=== PATIENT | male | born 1980 | race Hispanic/Latino ===

== ENCOUNTER 2018-06-25 14:06 | Emergency (ER) | payer MEDICARE ==
--- NOTE | 2018-06-25 14:12 | Emergency Department Report ---
Blank Doc - Documentation Documentation: This is a 38-year-old male that presents with URI symptoms. This initial assessment diagnostic orders/clinical plan/treatment(s) is/are subject to change based on patient's health status, clinical progression and re- assessment by fellow clinical providers in the ED. Further treatment and workup at subsequent clinical providers discretion. Patient/guardians urged not to elope from ED s their condition may be serious if not clinically assessed and managed. Initial orders include: 1-Patient sent to [facility] for further evaluation and treatment 2- CXR
[2018-06-25 14:17] VITALS: BP 155/100
--- NOTE | 2018-06-25 15:51 | XRay Report ---
FINAL REPORT EXAM: XR CHEST ROUTINE 2V HISTORY: cough TECHNIQUE: PA and lateral views of the chest PRIORS: None. FINDINGS: Lines, tubes, and devices: N/A Lungs and pleura: Trachea is normal in position. Lungs are clear of infiltrate, pleural effusion, va scular congestion, or pneumothorax. Cardiomediastinal silhouette: Cardiac and mediastinal silhouettes are unremarkable. Other: Bony structures are intact. IMPRESSION: No acute cardiopulmonary process seen.
[2018-06-25] MEDS ORDERED: DECADRON IM STA (18:55)
--- NOTE | 2018-06-25 18:55 | Emergency Department Report ---
Minor Respiratory - HPI Chief Complaint: Upper Respiratory Infection Stated Complaint: POSS RESPIRATORY INFECTION Time Seen by Provider: 06/25/18 14:11 Duration: 2 Days Pain Location: Other (headache headache 2 days) Severity: mild (2/10) Minor Respiratory: Yes Rhinorrhea (nasal congestion that started over a week ago), Yes Able to Tolerate Fluids, Yes Cough (congested cough and chest), No Sore Throat, No Ear Pain, No Sick Contacts, No Hemoptysis, No Chest Pain, No Shortness of Breath, No Fever (report chills) Other History: This is a 38-year-old male here report that he started having headache and feels congested in his chest with coughing and 2 days but he said prior to that he had nasal congestion and runny nose for over a week now. His headache is 2/10 feels like pressure located to his forehead. [id number] cough and cold medication is not helping. He did not take anything for pain. Patient have multiple comorbidities to include congestive heart failure, hypertension, renal disease and he is on dialysis. Blood pressure is 155/100. He said he to take blood pressure medication but he had not taken them today. ED Review of Systems ROS: Stated complaint: POSS RESPIRATORY INFECTION Other details as noted in HPI Constitutional: chills. denies: fever ENT: congestion. denies: throat pain Respiratory: cough, wheezing. denies: shortness of breath, SOB with exertion, SOB at rest, stridor Cardiovascular: denies: chest pain, palpitations, dyspnea on exertion, edema, syncope Gastrointestinal: denies: abdominal pain, nausea, vomiting Musculoskeletal: denies: back pain, joint swelling, arthralgia, myalgia Neurological: headache. denies: numbness, paresthesias, abnormal gait, vertigo ED Past Medical Hx - Past Medical History Previous Medical History?: Yes Hx Hypertension: Yes (Took Lopressor @ 0530) Hx Congestive Heart Failure: Yes (11/2013) Hx Renal Disease: Yes (TUES; TH; SAT) Hx Seizures: No Hx HIV: No - Surgical History Past Surgical History?: Yes Hx Pacemaker: No Hx Internal Defibrillator: No Additional Surgical History: PERMA CATH RIGHT CHEST. RIGHT EYE SURGERY - Family History Family history: hypertension - Social History Smoking Status: Unknown if ever smoked Substance Use Type: None - Medications Home Medications: Home Medications Medication Instructions Recorded Confirmed Last Taken Type Aspirin EC [Aspirin Enteric Coated 81 mg PO QDAY #30 tablet 05/09/14 06/02/14 06/02/14 05:30 Rx TAB] Famotidine [Pepcid] 20 mg PO DAILY #30 tablet 05/09/14 06/02/14 06/01/14 Rx Folic Acid [Folvite] 1 mg PO QDAY #30 tablet 05/09/14 06/02/14 05/26/14 Rx HYDROcodone/APAP 5-325 [[place] 1 each PO Q6H PRN #30 tablet 05/09/14 06/02/14 05/26/14 Rx 5-325 mg TAB] ISOSORBIDE MONOnitrate [Imdur ER] 30 mg PO QDAY #30 tablet 05/09/14 06/02/14 06/02/14 05:30 Rx Metoprolol [Lopressor TAB] 50 mg PO Q8HR #90 tablet 05/09/14 06/02/14 06/02/14 05:30 Rx Sodium Bicarbonate 650 mg PO TID #90 tablet 05/09/14 06/02/14 05/19/14 Rx Thiamine [Vitamin B-1] 100 mg PO QDAY #30 tablet 05/09/14 06/02/14 05/19/14 Rx Zolpidem [Ambien] 5 mg PO QHS PRN #30 tablet 05/09/14 06/02/14 05/30/14 Rx amLODIPine [Norvasc] 10 mg PO DAILY #30 tablet 05/09/14 06/02/14 06/02/14 05:30 Rx hydrALAZINE [Apresoline TAB] 100 mg PO Q8H #90 tablet 05/09/14 06/02/14 06/02/14 05:30 Rx HYDROcodone/ACETAMINOPHEN [[place] 1 each PO Q6HR PRN #40 tablet 06/02/14 Unknown Rx 7.5-325 mg TAB] levoFLOXacin [Levaquin] 250 mg PO QDAY #7 tablet 06/11/14 Unknown Rx oxyCODONE /ACETAMINOPHEN [Percocet 1 tab PO Q6HR PRN #14 tablet 06/11/14 Unknown Rx 5/325 mg] predniSONE [Deltasone] 20 mg PO BID #8 tablet 06/11/14 Unknown Rx ALBUTEROL Inhaler(NF) [VENTOLIN 2 puff IH Q6H PRN 1 Days #1 inha 06/25/18 Unknown Rx Inhaler(NF)] Cetirizine HCl [ZyrTEC] 10 mg PO QAM 14 Days #14 capsule 06/25/18 Unknown Rx Doxycycline [Vibramycin CAP] 100 mg PO Q12HR 10 Days #20 capsule 06/25/18 Unknown Rx Fluticasone [Flonase] 1 spray NS QDAY 14 Days #1 bottle 06/25/18 Unknown Rx guaiFENesin/CODEINE [Robitussin AC] 10 ml PO QHS PRN #70 oral.liqd 06/25/18 Unknown Rx predniSONE [Deltasone] 50 mg PO QDAY 3 Days #3 tab 06/25/18 Unknown Rx Minor Respiratory Exam - Exam General: Vital signs noted. No distress. Alert and acting appropriately. This is a 38-year-old male well-nourished well-developed in no acute distress patient is on dialysis 3 times a week. HEENT: Yes Moist Mucous Membranes (uvula midline and oral airways patent), Yes Rhinorrhea (congested with erythema), No Pharyngeal Erythema, No Pharyngeal Exudates, No Conjuctival Injection, No Frontal Tenderness, No Maxillary Tenderness Ear: Neither TM Bulge (bilateral TM congested without erythema), Neither TM Erythema, Neither EAC Pain, Neither EAC Discharge Neck: Yes Supple (full range of motion), No Adenopathy Lungs: Yes Good Air Exchange, Yes Wheezes (scattered wheezes into upper lung chávez), Yes Ronchi (rhonchi cleared with cough and), Yes Cough (congested cough), No Stridor, No Labored Respirations, No Retractions, No Use of Accessory Muscles, No Other Abnormal Lung Sounds Heart: Yes Regular (rate and rhythm) Abdomen: Yes Normal Bowel Sounds, No Tenderness Skin: No Rash, No Edema Neurologic: Alert and oriented 3, no deficits. Musculoskeletal: Unremarkable. No cce. + 2 pulses in all extremities, no neurovascular compromise ED Course Vital Signs 06/25/18 14:16 Temperature 97.7 F Pulse Rate 78 Respiratory 18 Rate Blood Pressure 155/100 O2 Sat by Pulse 97 Oximetry - Reevaluation(s) Reevaluation #1: 06/25/18 19:55 Patient stable throughout ED course he receives DuoNeb 1 and emergency room. Lung sounds are clear. He also received Decadron 10 mg IM. ED Medical Decision Making - Radiology Data Radiology results: report reviewed Chest x-ray dictated by radiologist report reviewed by myself. Please see report below Findings [facility] [address] [place] [address] XRay Report Signed Patient: VALERIA LANIER MR#: [id number] : 1980 Acct:[id number] Age/Sex: 38 / M ADM Date: 06/25/18 Loc: ED Attending Dr: Ordering Physician: FARNAZ NEWTON NP Date of Service: 06/25/18 Procedure(s): XR chest routine 2V Accession Number(s): [id number] cc: FARNAZ NEWTON NP Fluoro Time In Minutes: FINAL REPORT EXAM: XR CHEST ROUTINE 2V HISTORY: cough TECHNIQUE: PA and lateral views of the chest PRIORS: None. FINDINGS: Lines, tubes, and devices: N/A Lungs and pleura: Trachea is normal in position. Lungs are clear of infiltrate, pleural effusion, vascular congestion, or pneumothorax. Cardiomediastinal silhouette: Cardiac and mediastinal silhouettes are unremarkable. Other: Bony structures are intact. IMPRESSION: No acute cardiopulmonary process seen. Transcribed By: [facility] Dictated By: FEMI MCDANIEL MD Electronically Authenticated By: FEMI MCDANIEL MD Signed Date/Time: 06/25/181550 DD/ 155 TD/TT: 06/25/181549 - Medical Decision Making This is a 38-year-old male presents to emergency room with complaint of nasal congestion draining 1 week and headache 2 days with chest congestion. Patient has multiple medical problems including heart disease and also end-stage renal disease on dialysis. He was given Decadron and 1 DuoNeb treatment in emergency room and his lungs are clear. Patient does have a primary care side told to follow-up in 2-3 days and if his condition worsens or return to the emergency room. Blood pressure is mildly elevated and he takes medication which she did not take today. His other vital signs are stable and is afebrile. Patient's chest x-ray with negative findings in the night discussed this with him. I discussed discussed diagnosis of bronchitis and medication treatment plan. Patient will be placed on doxycycline as there is no renal dose and with this medication. She will also be sent home on Zyrtec and Flonase and guaifenesin with codeine cough syrup to take at night. He agrees with discharge and discharged home in stable condition - Differential Diagnosis PMH, bronchitis, pleurisy, viral versus bacterial, URI, sinusitis Critical care attestation.: If time is entered above; I have spent that time in minutes in the direct care of this critically ill patient, excluding procedure time. ED Disposition Clinical Impression: Cough in adult Bronchitis, acute Qualifiers: Bronchitis organism: other organism Qualified Code(s): J20.8 - Acute bronchitis due to other specified organisms Headache Qualifiers: Headache type: unspecified Headache chronicity pattern: acute headache Intractability: not intractable Qualified Code(s): R51 - Headache Disposition: DC-01 TO HOME OR SELFCARE Is pt being admited?: No Does the pt Need Aspirin: No Condition: Stable Instructions: Acute Bronchitis (ED), Acute Cough (ED), Upper Respiratory Infection (ED) Additional Instructions: Please follow up with primary care doctor in 2-3 days If his symptoms worsen, return to emergency room Take guaifenesin with codeine or codeine at night and please not drive or operate heavy machinery while taking this medication can cause drowsiness Take all of the medication as prescribed Please take your blood pressure medication as it was mildly elevated today. Please let kidney doctor know that you are started on medication for bronchitis in emergency room. Referrals: JUANY JAUREGUI [Primary Care Provider] - 2-3 Days Forms: Work/School Release Form(ED)
[2018-06-25] MEDS ORDERED: DUONEB *Not for PRN Use IH ONE (18:56)
== END 2018-06-25 20:14 | disposition home or self-care (01) ==
LOC: ED 14:06
DX: J20.8 Acute bronchitis due to other specified organisms (principal); R51 Headache; I11.0 Hypertensive heart disease with heart failure; I50.9 Heart failure, unspecified
CPT/HCPCS: 71046; 96372; 99283; J1100